=== PATIENT | female | born 1990 | race Caucasian/White ===

== ENCOUNTER 2016-10-03 23:18 | Emergency (ER) | payer BC, OTHER ==
[~2016-10-03] VITALS: Wt 80.5 kg
[~2016-10-03 23:18] MED LIST: PREN1TAB49 PO
[2016-10-04] MEDS ORDERED: TETRACAINE 0.5% 4 ML OPH LEFT EYE STA (00:43)
[2016-10-04] MEDS ORDERED: FLUORESCEIN STRIP LEFT EYE STA (00:43)
[2016-10-04] MEDS ORDERED: VALACYCLOVIR 500 MG TAB PO STA (00:43)
[2016-10-04] MEDS ORDERED: HYDROCODONE/APAP (5/325) TAB PO STA (00:43)
[2016-10-04] MEDS ORDERED: HYDR-906 PO (01:44)
[2016-10-04] MEDS ORDERED: VALA10004 PO (01:44)
[2016-10-04 02:00] VITALS: BP 133/79; PULSE 86; RESP 18; TEMP 98.1
--- NOTE | 2016-10-04 02:06 | ERD ---
ER Documentation Chief Complaint Date/Time DATE: 10/04/16 TIME: 01:55 Chief Complaint Rash and pain on left scalp x 2 days HPI This is a 26-year-old female presenting to the emergency department complaining of a rash and pain on the left parietal scalp, eyelid and forehead for the past 2 days. Patient states the pain is moderate to severe, she describes as burning constant. Patient denies any vision changes or blurry vision. Patient denies taking any medications for this. She also states that she has a painful bump in the left side of her neck ROS All systems reviewed and are negative except as per history of present illness. Medications Home Meds Active Scripts Hydrocodone/Acetaminophen ([place] 5-325 Tablet) 1 Each Tablet, 1 EACH PO Q4 Y for PAIN, #14 TAB Prov:ALANA BEGUM PA-C 10/04/16 Valacyclovir HCl (Valtrex) 1,000 Mg Tablet, 1000 MG PO TID for 7 Days, TAB Prov:ALANA BEGUM PA-C 10/04/16 Reported Medications Vits W-Ca,Fe,Fa(<1MG) () 1 Tab Tablet, 1 TAB PO 08/19/12 Allergies Allergies: Coded Allergies: No Known Allergies (Verified Allergy, 08/19/12) PMhx/Soc Medical and Surgical Hx: pt denies Medical Hx, pt denies Surgical Hx Hx Alcohol Use: No Hx Substance Use: No Hx Tobacco Use: No Smoking Status: Never smoker Physical Exam Vitals Vital Signs Date Time Temp Pulse Resp B/P Pulse Ox O2 Delivery O2 Flow Rate FiO2 10/03/16 23:34 98.8 77 20 126/68 99 Physical Exam General: WD/WN, in no apparent distress, non-toxic appearing HENT: NC/AT EYES: Conjunctiva normal, no icterus Extraocular muscles intact, pupils equal and reactive to light with consensual response Fluorescein staining examination with shabazz lamp did not show any dendritic lesions Negative Marina test NECK: Supple; no LAD PULM: Normal labored breathing CV: RRR Good capillary refill GI: Non-distended, no guarding BACK: No masses EXT: No clubbing, cyanosis, or edema NEURO: Moves on all fours SKIN: Erythematous vesicles on the left forehead, mild vesicles on the left upper eyelid, negative Feng sign PSYCH: Normal mood Results 24 hrs Current Medications Medications (Trade) Dose Ordered Sig/Marine Route PRN Reason Start Time Stop Time Status Last Admin Dose Admin Tetracaine HCl (Tetracaine 0.5% Steri-Unit Tiffany) 1 drop ONCE STAT LEFT EYE 10/04/16 00:43 10/04/16 00:46 DC Fluorescein Sodium (Cnaif-I-Fbqkn) 1 strip ONCE STAT LEFT EYE 10/04/16 00:43 10/04/16 00:46 DC Valacyclovir HCl (Valtrex) 1,000 mg ONCE STAT PO 10/04/16 00:43 10/04/16 00:46 DC 10/04/16 01:40 Acetaminophen/ Hydrocodone Bitart ([place] (5/325)) 2 tab ONCE STAT PO 10/04/16 00:43 10/04/16 00:46 DC 10/04/16 01:26 Procedures/MDM Is a 26-year-old female presenting to the emergency room with a painful rash on the left upper face, consistent with herpes zoster of trigeminal ganglion. At this time, there is no evidence of ocular involvement. Patient had negative Feng sign. Fluorescein staining was done and did not show any evidence of dendritic lesions in the cornea. Patient had extraocular muscles intact however due to the distribution of the herpes zoster patient will need urgent ophthalmology consult. We have called [facility] in which they have a biomass plant manager on site, I have given patient the discussion and she states that she is going to go to all of you from this hospital. In the ED patient was given Omaha for pain and 1 g of valacyclovir. Patient is stable for discharge to be seen at [facility]. I have consulted my supervising physician who has evaluated the patient as well and agrees with my plan above. Patient agrees and understands this plan Departure Diagnosis: Primary Impression: Shingles Condition: Fair Patient Instructions: Shingles (Herpes Zoster) Referrals: [facility] [place] YOU HAVE RECEIVED A MEDICAL SCREENING EXAM AND THE RESULTS INDICATE THAT YOU DO NOT HAVE A CONDITION THAT REQUIRES URGENT TREATMENT IN THE EMERGENCY DEPARTMENT. FURTHER EVALUATION AND TREATMENT OF YOUR CONDITION CAN WAIT UNTIL YOU ARE SEEN IN YOUR DOCTORS OFFICE WITHIN THE NEXT 1-2 DAYS. IT IS YOUR RESPONSIBILITY TO MAKE AN APPOINTMENT FOR FOLOW-UP CARE. IF YOU HAVE A PRIMARY DOCTOR --you should call your primary doctor and schedule and appointment IF YOU DO NOT HAVE A PRIMARY DOCTOR YOU CAN CALL OUR PHYSICIAN REFERRAL HOTLINE AT . IF YOU CAN NOT AFFORD TO SEE A PHYSICIAN YOU CAN CHOSE FROM THE FOLLOWING [facility] INSTITUTIONS: [id number] [place] [id number] [place] [address] [address] [place] [address] [facility] [address] [place] [address] Additional Instructions: County: Go to any of the following [facility] [place] [address] Take all medicines as directed. Return to this facility if you are not improving as expected. You have been given a medicine NORCO which may cause drowsiness.DO NOT DRIVE OR OPERATE DANGEROUS MACHINERY while taking this medicine! ALANA BEGUM PA-C October 04, 2016 02:06
== END 2016-10-04 02:00 | disposition home or self-care (01) ==
LOC: FTE 23:18
DX: B02.9 Zoster without complications (principal)
CPT/HCPCS: Z7502; Z7610; 99284

== ENCOUNTER 2017-07-05 14:42 | Emergency (ER) | END 2017-07-05 21:09 | disposition home or self-care (01) ==

== ENCOUNTER 2017-07-07 17:17 | Emergency (ER) | END 2017-07-07 21:42 | disposition home or self-care (01) ==

== ENCOUNTER 2017-07-09 23:13 | Emergency (ER) | END 2017-07-10 03:32 | disposition home or self-care (01) ==

== ENCOUNTER 2018-08-02 08:29 | Emergency (ER) | payer MEDICAID, OTHER ==
[~2018-08-02] VITALS: Ht 162.6 cm; Wt 77.2 kg
[~2018-08-02 08:29] MED LIST changes: +CEPH-443 PO; +HYDR-4011 PO; +IBUP-1542 PO; +TYL500 PO; +VALA10004 PO
[2018-08-02 08:37] VITALS: BP 126/62; PULSE 92; RESP 18; Ht 162.6 cm; Wt 77.2 kg
[2018-08-02] MEDS ORDERED: LIDOCAINE/MYLANTA 40 ML BTL PO ONE (10:30)
[2018-08-02] MEDS ORDERED: ONDANSETRON (ODT) 4 MG TAB ODT STA (10:47)
[2018-08-02] MEDS ORDERED: ONDA4TAB14 PO (11:30)
--- NOTE | 2018-08-02 16:07 | ERD ---
ER Documentation Chief Complaint Chief Complaint diarrhea x 2 days HPI 28 year-old female coming in today with Chief Complaint: Diarrhea History of Present Illness: Patient reporting vomiting 2 days ago. Patient reporting diarrhea starting 1 day ago and continuing until today. No nausea or vomiting at this moment. Positive sick contacts, child at home with similar symptoms that started after going to tile mechanic helper. No recent travel. Review of systems: All systems were reviewed and are negative except for what is indicated in the history of present illness. Past Medical History: Negative for hypertension, diabetes or other medical problems; vaccinations up-to-date Social History: Patient denies tobacco, alcohol, elicit drug use Medications: None Allergies: NKDA Social Concerns: Denies ROS All systems reviewed and are negative except as per history of present illness. Medications Home Meds Active Scripts Ondansetron (Ondansetron Odt) 4 Mg Tab.rapdis, 4 MG PO Q6H PRN for NAUSEA AND/OR VOMITING, #5 TAB Prov:LORI PELAEZ V [employer]S CATALOGER 08/02/18 Hydrocodone/Acetaminophen ([place] 5-325 Tablet) 1 Each Tablet, 1 TAB PO Q6H PRN for SEVERE PAIN LEVEL 7-10, #20 TAB Prov:JAKE CHACKO [employer]S CATALOGER 07/10/17 Ibuprofen* (Motrin*) 600 Mg Tab, 600 MG PO Q6H PRN for PAIN AND OR ELEVATED TEMP, #30 TAB Prov:JAKE CHACKO [employer]S CATALOGER 07/10/17 Acetaminophen* (Tylenol*) 500 Mg Tab, 500 MG PO Q4H PRN for MILD PAIN LEVEL 1-3, #20 TAB Prov:CHRISTIANNE MELCHOR DO 07/05/17 Cephalexin* (Keflex*) 500 Mg Capsule, 500 MG PO QID for 3 Days, CAP Prov:CHRISTIANNE MELCHOR DO 07/05/17 Hydrocodone/Acetaminophen ([place] 5-325 Tablet) 1 Each Tablet, 1 EACH PO Q4 PRN for PAIN, #14 TAB Prov:ALANA BEGUM PA-C 10/04/16 Valacyclovir HCl (Valtrex) 1,000 Mg Tablet, 1000 MG PO TID for 7 Days, TAB Prov:ALANA BEGUM PA-C 10/04/16 Reported Medications Vits W-Ca,Fe,Fa(<1MG) () 1 Tab Tablet, 1 TAB PO 08/19/12 Allergies Allergies: Coded Allergies: No Known Allergies (Verified Allergy, 08/19/12) PMhx/Soc History of Surgery: No Anesthesia Reaction: No Hx Neurological Disorder: No Hx Respiratory Disorders: No Hx Cardiac Disorders: No Hx Psychiatric Problems: No Hx Miscellaneous Medical Probl: No Hx Alcohol Use: No Hx Substance Use: No Hx Tobacco Use: No Smoking Status: Never smoker FmHx Family History: No diabetes, No coronary disease Physical Exam Vitals Vital Signs Date Temp Pulse Resp B/P (MAP) Pulse Ox O2 O2 Flow FiO2 Time Delivery Rate 08/02/18 97.8 92 18 126/62 99 08:37 (83) Physical Exam Const: No acute distress Head: Atraumatic Eyes: Normal Conjunctiva ENT: Normal External Ears, Nose and Mouth. Neck: Full range of motion. No meningismus. Resp: Clear to auscultation bilaterally Cardio: Regular rate and rhythm, no murmurs Abd: Soft, non distended. Normal bowel sounds. Tenderness to palpation to epigastric. No grimacing noted on exam. Skin: No petechiae or rashes Back: No midline or flank tenderness Ext: No cyanosis, or edema Neur: Awake and alert Psych: Normal Mood and Affect Results 24 hrs Current Medications Medications Dose Sig/Marine Start Time Status Last (Trade) Ordered Route PRN Stop Time Admin Dose Reason Admin 40 ml ONCE ONCE 08/02/18 DC 08/02/18 Miscellaneous PO 10:30 10:33 Medication 08/02/18 10:31 (Gi Cocktail (2)) Ondansetron 4 mg ONCE STAT 08/02/18 DC HCl (Zofran ODT 10:47 Odt) 08/02/18 10:48 Procedures/MDM ED course includes a thorough examination and history. ED course includes medic ation; GI cocktail. Patient reassessment at 11:00: Patient reporting episode of vomiting after GI cocktail. Reports not liking the taste and may be making her feel sick. Will order 1 dose of Zofran and discharge. Low suspicion for life-threatening medical emergency or gastrointestinal emergency or genitourinary emergency. Otherwise healthy patient presenting with constellation of symptoms likely representing uncomplicated gastroenteritis as characterized by history, physical exam findings. No respiratory distress, otherwise relatively well appearing and nontoxic. Patient educated on diagnoses, prescriptions, follow-up care, return precautions. Strict return precautions given for worsening condition; questions answered. Disposition for discharge with followup in 2-3 days with PCP/clinic. Departure Diagnosis: Primary Impression: Gastroenteritis Additional Impression: Diarrhea Diarrhea type: unspecified type Qualified Codes: R19.7 - Diarrhea, unspecified Condition: Stable Patient Instructions: Treating Diarrhea, Self-Care for Vomiting and Diarrhea, Diarrhea, Viral (Infant/Toddler), Gastroenteritis, Non-Infectious (Child) (Adult), Gastroenteritis, Viral (6Y-Adult) Referrals: [facility] YOU HAVE RECEIVED A MEDICAL SCREENING EXAM AND THE RESULTS INDICATE THAT YOU DO NOT HAVE A CONDITION THAT REQUIRES URGENT TREATMENT IN THE EMERGENCY DEPARTMENT. FURTHER EVALUATION AND TREATMENT OF YOUR CONDITION CAN WAIT UNTIL YOU ARE SEEN IN YOUR DOCTORS OFFICE WITHIN THE NEXT 1-2 DAYS. IT IS YOUR RESPONSIBILITY TO MAKE AN APPOINTMENT FOR FOLOW-UP CARE. IF YOU HAVE A PRIMARY DOCTOR --you should call your primary doctor and schedule an appointment IF YOU DO NOT HAVE A PRIMARY DOCTOR YOU CAN CALL OUR PHYSICIAN REFERRAL HOTLINE AT IF YOU CAN NOT AFFORD TO SEE A PHYSICIAN YOU CAN CHOSE FROM THE FOLLOWING [facility] [address] [facility]. [facility] [address] [facility] [facility] [address] [facility] [facility] [address] [facility] [facility] [address] [facility]. [facility]. [address] [facility]. [facility] YOU HAVE RECEIVED A MEDICAL SCREENING EXAM AND THE RESULTS INDICATE THAT YOU DO NOT HAVE A CONDITION THAT REQUIRES URGENT TREATMENT IN THE EMERGENCY DEPARTMENT. FURTHER EVALUATION AND TREATMENT OF YOUR CONDITION CAN WAIT UNTIL YOU ARE SEEN IN YOUR DOCTORS OFFICE WITHIN THE NEXT 1-2 DAYS. IT IS YOUR RESPONSIBILITY TO MAKE AN APPOINTMENT FOR FOLOW-UP CARE. IF YOU HAVE A PRIMARY DOCTOR --you should call your primary doctor and schedule and appointment IF YOU DO NOT HAVE A PRIMARY DOCTOR YOU CAN CALL OUR PHYSICIAN REFERRAL HOTLINE AT . IF YOU CAN NOT AFFORD TO SEE A PHYSICIAN YOU CAN CHOSE FROM THE FOLLOWING [facility] INSTITUTIONS: [facility] [address] [place] [address] [facility] [address] [place] [address] [facility] [address] [place] [address] Additional Instructions: Call your primary care doctor TOMORROW for an appointment during the next 2-3 days.See the doctor sooner or return here if your condition worsens before your appointment time. LORI PELAEZ NP Aug 02, 2018 16:07
== END 2018-08-02 11:45 | disposition home or self-care (01) ==
LOC: FTE 08:29
DX: K52.9 Noninfective gastroenteritis and colitis, unspecified (principal)
CPT/HCPCS: Z7502; Z7610; 99283